=== PATIENT | male | born 1960 | race Caucasian/White ===

== ENCOUNTER → 2018-09-08 | Outpatient (CLI) | payer OTHER ==
--- NOTE | 2018-09-08 13:49 | XR ---
EXAMINATION TYPE: XR thoracic spine complete DATE OF EXAM: 09/08/2018 CLINICAL HISTORY: Strain injury one week ago with mid back pain. TECHNIQUE: Frontal, lateral, and swimmer's view of thoracic spine are obtained. COMPARISON: MRI thoracic spine 2010. FINDINGS: Thoracic spine show straightened alignment without evidence of acute fracture or dislocatio n. Vertebral body heights and disc space heights are preserved. Visualized ribs are unremarkable alissa aterally. IMPRESSION: No acute fracture or dislocation is seen in the thoracic spine.
== END | disposition home or self-care (01) ==
LOC: RADXRMAIN 13:27
PROVIDERS: ATTEND Emergency Medicine
DX: S23.3XXA Sprain of ligaments of thoracic spine, initial encounter (principal)
CPT/HCPCS: 72072

== ENCOUNTER → 2018-12-13 | Outpatient (CLI) | payer OTHER ==
--- NOTE | 2018-12-13 15:09 | XR ---
Left ankle HISTORY: Trauma and pain 3 views of the left ankle There is minimal soft tissue swelling. Bone mineralization, joint spaces and alignment are maintained . IMPRESSION: No fracture or dislocation is evident.
== END | disposition home or self-care (01) ==
LOC: RADXRMAIN 11:09
PROVIDERS: ATTEND Family Medicine
DX: M25.572 Pain in left ankle and joints of left foot (principal)

== ENCOUNTER → 2019-11-10 | Outpatient (CLI) | payer OTHER ==
[2019-11-10 15:36] LABS: ALT 35 U/L (4-49); AST 38 U/L (17-59); African American GFR (CKD) >90 (>60 ml/min/1.73 sqM); Albumin 4.2 g/dL (3.5-5.0); Alkaline Phosphatase 71 U/L (38-126); Anion Gap 7 mmol/L; Blood Urea Nitrogen 19 mg/dL (9-20); Calcium 9.4 mg/dL (8.4-10.2); Carbon Dioxide 27 mmol/L (22-30); Chloride 106 mmol/L (98-107); Glucose 93 mg/dL (74-99); Non-African American GFR(CKD) >90 (>60 ml/min/1.73 sqM); Potassium 4.1 mmol/L (3.5-5.1); Sodium 140 mmol/L (137-145); Total Bilirubin 0.9 mg/dL (0.2-1.3); Total Protein 6.4 g/dL (6.3-8.2)
[2019-11-10 15:37] LABS: HCT 45.2 % (39.0-53.0); HGB 14.4 gm/dL (13.0-17.5); MCH 29.9 pg (25.0-35.0); MCHC 31.9 g/dL (31.0-37.0); MCV 93.8 fL (80.0-100.0); Mean Platelet Volume 7.1; Platelet Count 351 k/uL (150-450); RBC 4.82 m/uL (4.30-5.90); RDW 12.1 % (11.5-15.5); WBC 5.9 k/uL (3.8-10.6)
[2019-11-10 15:44] LABS: Amorphous Sediment,Urine Rare /hpf; Appearance,Urine Cloudy (Clear); Bilirubin,Urine Negative (Negative); Blood,Urine Negative (Negative); Color,Urine Yellow; Glucose,Urine (UA) Negative (Negative); Ketones,Urine Negative (Negative); Leukocyte Esterase,Urine Negative (Negative); Mucus,Urine Moderate /hpf; Nitrite,Urine Negative (Negative); PH, Urine 5.5 (5.0-8.0); Protein,Urine Trace (Negative); Specific Gravity,Urine 1.028 (1.001-1.035); Urobilinogen,Urine <2.0 mg/dL (<2.0); WBC,Urine 2 /hpf (0-5)
[2019-11-10 15:46] LABS: Partial Thromboplastin Time 23.2 sec (22.0-30.0); Prothrombin Time 10.1 sec (9.0-12.0)
== END | disposition home or self-care (01) ==
LOC: LABPAT 12:36
PROVIDERS: ATTEND Orthopaedic Surgery
DX: Z01.818 Encounter for other preprocedural examination (principal); Z01.812 Encounter for preprocedural laboratory examination
CPT/HCPCS: 36415; 80053; 81001; 85027; 85610; 85730; 87070

== ENCOUNTER 2019-11-27 10:24 | Day surgery (SDC) | payer OTHER ==
[2019-11-23 09:55] VITALS: BMI 26.6
[~2019-11-27 10:24] MED LIST: ACETAMINOPHEN TAB 500 MG TAB PO ONE; DEXAMETHASONE SOD PHOSPHATE 10 MG/ML 1 ML VIAL IV ONE; LACTATED RINGERS 1,000 ML IV SCH; LIDOCAINE 1% (10MG/ML) FOR IV START INTRADERMA PRN; MELOXICAM 7.5 MG TAB PO ONE; ONDANSETRON 4 MG/2 ML VIAL IVP ONE; ROPIVACAINE 246.25 MG, EPINEPHrine 0.5 MG, KETOROLAC 30 MG, cloNIDine HCL/PF 80 MCG, WA... MISCELLANE ONE; SCOPOLAMINE 1.5MG/72HR PATCH TRANSDERM ONE; TRANEXAMIC ACID 1,000 MG in SODIUM CHLORIDE 0.9% 100 ML IVPB ONE
[2019-11-27] MEDS ORDERED: ONDANSETRON 4 MG/2 ML VIAL ONE (11:03)
[2019-11-27] MEDS ORDERED: ACETAMINOPHEN TAB 500 MG TAB ONE (11:03)
[2019-11-27] MEDS ORDERED: MIDAZOLAM 2 MG/2 ML VIAL IV ONE (11:38)
[2019-11-27] MEDS ORDERED: fentaNYL (PF) 50 MCG/ML 2 ML AMP IV ONE ×2 (11:38→11:55)
[2019-11-27] MEDS ORDERED: ROPIVACAINE 0.2%-NS ON-Q PUMP 1,090 MG, EMPTY PAIN BALL 1 EACH MISCELLANE PRN ×3 (12:37→14:23)
--- NOTE | 2019-11-27 12:37 | P.ANPRN ---
Procedure Note - Anesthesia - Nerve Block Performed Right Adductor Canal Infusion Time Out Performed: Yes Date of Procedure: 11/27/19 Procedure Start Time: 11:38 Procedure Stop Time: 11:50 Location of Patient: PreOp Indication: Acute Post-Operative Pain, Requested by Surgeon Specifically requested for management of pain by : Richard Tucker Sedation Type: Sedate with meaningful contact maintained Preparation: Sterile Prep, Sterile Dressing Position: Supine Catheter: Indwelling Needle Types: Pajunk Needle Gauge: 18 Ultrasound used to visualize needle placement: Yes Ultrasound used to observe medication spread: Yes Injectate: 0.5% Ropivacaine (see comment for volume) (15 ml + decadron 2 mg) Blood Aspirated: No Pain Paresthesia on Injection Noted: No Resistance on Injection: Normal Image Stored and Saved: Yes Events: Uneventful and Well Tolerated Left Adductor Canal Infusion Time Out Performed: Yes Date of Procedure: 11/27/19 Procedure Start Time: 11:51 Procedure Stop Time: 12:07 Location of Patient: PreOp Indication: Acute Post-Operative Pain, Requested by Surgeon Sedation Type: Sedate with meaningful contact maintained Preparation: Sterile Prep, Sterile Dressing Position: Supine Catheter: Indwelling Needle Types: Pajunk Needle Gauge: 18 Ultrasound used to visualize needle placement: Yes Ultrasound used to observe medication spread: Yes Injectate: 0.5% Ropivacaine (see comment for volume) (15 ml + 2 mg decadron) Blood Aspirated: No Pain Paresthesia on Injection Noted: No Resistance on Injection: Normal Image Stored and Saved: Yes Events: Uneventful and Well Tolerated
[2019-11-27] MEDS ORDERED: ePHEDrine SULFATE/0.9% NACL/PF 50 MG/5 ML SYRINGE IV ONE (12:46)
[2019-11-27] MEDS ORDERED: HYDROmorphone (PF) 1 MG/ML ONE (12:46)
[2019-11-27] MEDS ORDERED: TRANEXAMIC ACID 1,000 MG/10 ML VIAL ONE (12:46)
[2019-11-27] MEDS ORDERED: fentaNYL (PF) 50 MCG/ML 2 ML AMP ONE (12:46)
[2019-11-27] MEDS ORDERED: SODIUM CHLORIDE 0.9% 250 ML BAG ONE (12:46)
[2019-11-27] MEDS ORDERED: LIDOCAINE 1% INJ 10MG/ML (20 ML MDV) ONE (12:46)
[2019-11-27] MEDS ORDERED: SUCCINYLCHOLINE CHLORIDE 100 MG/5 ML SYR IV ONE (12:46)
[2019-11-27] MEDS ORDERED: PROPOFOL 10 MG/ML 20 ML VIAL IV ONE (12:46)
[2019-11-27] MEDS ORDERED: MIDAZOLAM 2 MG/2 ML VIAL ONE (12:46)
[2019-11-27] MEDS ORDERED: LACTATED RINGERS 1,000 ML IV ONE ×2 (15:30→16:36)
--- NOTE | 2019-11-27 16:27 | P.OP ---
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 ANESTHESIA: Spinal ESTIMATED BLOOD LOSS: 100 ml. METAL STAMPER: Isabell Pereyra PA-C (assistance with: patient positioning, retraction, exposure, hemostasis, leg positioning, implantation, irrigation, closure, dressing) COMPLICATIONS: None apparent. COMPONENTS IMPLANTED: Journey II BCS total knee system from [facility], [facility] INDICATIONS: Mr. Chaudhari is a 59 year old male with a history of bilateral knee osteoarthritis. The patient's knees are end-stage, and conservative management has failed. The operation of knee replacement bilaterally has been discussed at length in the office, as well as potential risks and complications. These are inclusive of, but not limited to: bleeding, infection, scarring, discomfort, blood vessel and nerve damage, need for further surgery, failure to relieve symptoms, persistence, recurrence, or worsening of problems, loosening, dislocation, wear, blood clot, pulmonary embolism, , gait dysfunction, stiffness, and other risks as discussed in the office. He understands the incre ased risks of morbidity and mortality with a bilateral knee approach. The patient elects to proceed and the consent form has been signed. PROCEDURE: The patient was taken to the operating room and positioned on the operating room table in the supine position. Anesthesia was initiated. Care was taken to make sure that all pressure points were adequately padded. The operative lower extremities were prepped and draped in the usual aseptic fashion using ChloraPrep. Ioban drape was used for the case and the patient received intravenous antibiotics within one hour of the incision. A pneumotourniquet and leg arenas were used for the case. The initial limb (right) was exsanguinated with an Esmarch bandage and the tourniquet was inflated to 350 mmHg. Time-out was called confirming the patient's identity, side (bilateral), procedure and administration of antibiotics and tranexamic acid. The incision was then created midline directly over the left knee, carried down through skin and into the subcutaneous tissues and down to fascia. Full thickness subcutaneous medial flap was developed. Medial parapatellar arthrotomy was performed and the interior of the knee was inspected. There was end-stage osteoarthritis of the knee with a mild to moderate genu valgum type deformity. The fat pad was excised and proximal medial release on the tibia was completed using meticulous dissection and a curved osteotome. The anterior cruciate ligament was taken down. Note was made of significant attrition of the anterior and significant degenerative appearance of the cruciate ligaments. The exposure was excellent. The knee was flexed 90 degrees and the patella was everted. The Visionaire pre- made distal cutting block was attached and pinned into position. The planned cut was analyzed visually and with the alignment iain and found to be satisfactory without the need for any adjustment. The oscillating saw was then used to make the distal femoral cut and make the alignment holes for the 5 in 1 block. This cut was confirmed to be flat with the flat end of an osteotome. The 5 in 1 block was then used to create the anterior posterior condylar resections and the chamfer cuts. The retractors were placed around the tibia and the tibial surface was addressed. The Visionaire pre-made guide was placed onto the exposed tibial surface and pinned into position to gamal the rotational alignment. The alignment of the guide was checked for depth of plannned resection, slope, and varus valgus. Guide was confirmed to be in good position and the tibial cut was then created with protection of the posterior neurovascular structures and the collateral ligaments. The tibial cut surface was removed and sized. Spacer block technique was then used to confirm that the flexion and extension gaps were equal. Soft tissue releases and adjustment of the tibial and/or femoral cuts were made, as necessary, until the gaps were equal. This included release of the posterior cruciate ligament, which was excessively tight in this patient. The trial components were inserted. The tibial tray was allowed to self center and the patella was noted to track very well. The position of the tibial component was marked and noted to be nearly exactly aligned with the pre-drilled holes from the [employer]aire guide. The tibia was then finished for a stemmed tibial component. Patellar resurfacing was performed using a reamer. The size of the required patellar component was estimated and the patellar surface was then reamed down to a residual thickness which would recreate the egegik thickness with the component. The exact placement of the patellar component was adjusted for position based on preoperative x-rays and intraoperative findings. Patellar tracking remained excellent after resurfacing. Trial components were removed and the cut surfaces of the bone were pulse lavaged thoroughly and dried. Cement was mixed on the back table and applied to the final components. Cement was then applied to the tibial surface and pressurized into the surface using finger pressurization technique. The tibial component was then applied and excess cement was removed after it was impacted securely and noted to be flush with the cut surface. In similar fashion, the cement was applied to the cut femoral surface, pressurized in using finger pressurization and the component was impacted into place. Excess cement was removed. The polyethylene spacer was then implanted and locked into position. The patellar component was then applied in similar technique and a patellar clamp was used to hold the patella in place as the cement hardened. Once the cement had fully hardened, the knee was reinspected. Any other cement extrusion was removed and final kinematic testing showed range of motion from 0 to 130 degrees with excellent stability, both medially and laterally and appropriate alignment of the leg. Patellar tracking was excellent. The knee was then thoroughly pulse lavaged with normal saline. The tourniquet was deflated and hemostasis was obtained with electrocautery and IV tranexamic acid, 1 g given at the start of the operation and 1 g at the start of closure. Closure was with #2 Ethibond in the fascia/capsule and supplemented with #2 Quill, 2-0 Vicryl suture was used for the subcutaneous tissues and 3-0 Quill for the skin. Exofin topical dressing was then applied. The right leg was then uncovered by snipping the covering sterile drape and discarding. The above steps for the right knee were followed in similar fashion with the outcome being a fully cemented bicruciate substituting reconstruction with excellent patellar tracking and 0-130 degrees motion. No complications were noted during the surgery on either knee. Estimated blood loss was 50 cc per knee, total of 100 cc for the entire procedure. A lightly compressive dressing was applied to both knees using Webril and an Pj wrap. The patient was then transferred to stretcher and taken to the recovery room in stable condition. Sponge and needle counts were correct.
[2019-11-27] MEDS ORDERED: HYDROmorphone 1 MG/ML 1 ML SYRINGE IVP PRN (16:55)
[2019-11-27] MEDS ORDERED: HYDROmorphone 0.5 MG/0.5 ML SYRINGE IVP PRN ×2 (16:55)
[2019-11-27] MEDS ORDERED: bisacodyL 10 MG SUPP RECTAL PRN (16:55)
[2019-11-27] MEDS ORDERED: TEMAZEPAM 15 MG CAP PO PRN (16:55)
[2019-11-27] MEDS ORDERED: hydrOXYzine pamoate 25 MG CAP PO PRN (16:55)
[2019-11-27] MEDS ORDERED: HYDROcodone/APAP 7.5-325MG 1 EACH TAB PO PRN (16:55)
[2019-11-27] MEDS ORDERED: NA PHOS,M-B/NA PHOS,DI-BA 133 ML ENEMA RECTAL PRN (16:55)
[2019-11-27] MEDS ORDERED: NALOXONE 0.4 MG/ML 1 ML VIAL IV PRN (16:55)
[2019-11-27] MEDS ORDERED: MAGNESIUM HYDROXIDE 2,400 MG/10 ML CUP PO PRN (16:55)
[2019-11-27] MEDS: HYDROmorphone 0.5 MG/0.5 ML SYRINGE IVP PRN ×4 (16:55→17:32)
[2019-11-27] MEDS ORDERED: ONDANSETRON 4 MG/2 ML VIAL IVP PRN (16:55)
[2019-11-27] MEDS ORDERED: KETOROLAC 30 MG/ML 1 ML VIAL IVP ONE (17:04)
--- NOTE | 2019-11-27 17:47 | XR ---
EXAMINATION TYPE: XR knee limited bilateral DATE OF EXAM: 11/27/2019 COMPARISON: NONE HISTORY: Postop surgery TECHNIQUE: 4 views FINDINGS: 2 views of each knee were obtained. There is bilateral total knee prosthesis. Components ar e in anatomic position. There is no evidence of a fracture. IMPRESSION: No complicating process seen.
[2019-11-27] MEDS: LACTATED RINGERS 1,000 ML IV SCH (19:32)
[2019-11-27] MEDS ORDERED: SENNOSIDES-DOCUSATE SODIUM 1 EACH TAB PO SCH (21:00)
[2019-11-27] MEDS: ASPIRIN 81 MG PO SCH (21:33)
[2019-11-28 02:20] VITALS: TEMP 98.5
[2019-11-28] MEDS: LACTATED RINGERS 1,000 ML IV SCH (05:35)
[2019-11-28] MEDS: HYDROcodone/APAP 7.5-325MG 1 EACH TAB PO PRN ×2 (06:50→11:53)
[2019-11-28] MEDS: ASPIRIN 81 MG PO SCH (06:50)
[2019-11-28 07:37] VITALS: BP 139/81; PULSE 83; RESP 16
--- NOTE | 2019-11-28 08:16 | P.PN ---
Progress Note - Text Progress Note Date: 11/28/19 Postoperative day # 1 status post bilateral total knee arthroplasty, and Bilateral adductor canal catheter placed for postoperative analgesia, currently at ropivacaine 0.2% 8 mL per hour and continuous infusion, visual analogue scale is 3/10, patient using oral pain medication for breakthrough pain. Assessment and plan= Acute postoperative pain, Bilateral adductor canal catheter for pain control, pain is well controlled we'll continue the same management.
[2019-11-28 08:18] LABS: Basophils % (A) 0 %; Eosinophils % (A) 0 %; HCT 35.7 % (39.0-53.0); HGB 11.5 gm/dL (13.0-17.5); Lymphocytes # (A) 1.2 k/uL (1.0-4.8); Lymphocytes % (A) 8 %; MCH 30.1 pg (25.0-35.0); MCHC 32.2 g/dL (31.0-37.0); MCV 93.5 fL (80.0-100.0); Mean Platelet Volume 7.3; Monocytes # (A) 0.9 k/uL (0-1.0); Monocytes % (A) 6 %; Neutrophils # (A) 12.6 k/uL (1.3-7.7); Neutrophils % (A) 86 %; Platelet Count 298 k/uL (150-450); RBC 3.82 m/uL (4.30-5.90); RDW 11.7 % (11.5-15.5); WBC 14.8 k/uL (3.8-10.6)
[2019-11-28] MEDS ORDERED: MELOXICAM 7.5 MG TAB PO SCH (09:00)
--- NOTE | 2019-11-28 09:43 | P.DS ---
Providers Expected date of discharge: 11/28/19 Attending physician: Richard Tucker Consults: 11/27/19 16:55 Consult Physician Routine Consulting Provider: Timothy Ribeiro Reason/Comments: Medical management Do you want consulting provider notified?: Yes Primary care physician: Kieran Weston - Discharge Diagnosis(es) (1) Osteoarthritis of knees, bilateral Current Visit: Yes Status: Acute (2) S/P total knee arthroplasty Current Visit: Yes Status: Acute Hospital Course: This is a 59-year-old male who was last seen with complaint of continued bilateral knee pain. The patient has a known history of degenerative arthritis of bilateral knees and presents to discuss surgical options. After discussion and consideration the patient elects to proceed with bilateral total knee arthroplasty. The patient is seen preoperatively by his primary care physician and cleared for surgery. The patient is admitted to [facility] for bilateral total knee arthroplasty. The procedures performed without complication or sequelae. Patient is doing well postoperatively. Vital signs are stable at discharge. Labs are stable at discharge. the patient is ambulating well with walker with minimal assistance. The patient is discharged to home on postop day #1 pending medical clearance and PT eval. Please see orders and refer to the med rec for accurate list of medications. Patient Condition at Discharge: Good Plan - Discharge Summary Discharge Rx Participant: Yes New Discharge Prescriptions: New Aspirin [Adult Low Dose Aspirin EC] 81 mg PO BID #1 tablet. Meloxicam [Mobic] 1 - 2 tab PO DAILY PRN #30 tab PRN Reason: Pain HYDROcodone/APAP 7.5-325MG [[place] 7.5-325] 1 - 2 tab PO Q4-6H PRN #50 tab PRN Reason: Pain Sennosides-Docusate Sodium [Senokot-S] 1 tab PO BID #60 tablet hydrOXYzine pamoate [Vistaril] 25 mg PO Q4-6H #30 capsule No Action traMADol HCL [Ultram] 50 mg PO Q6HR PRN PRN Reason: Pain Discharge Medication List traMADol HCL [Ultram] 50 mg PO Q6HR PRN 11/23/19 [History] Aspirin [Adult Low Dose Aspirin EC] 81 mg PO BID #1 tablet. 11/27/19 [Rx] HYDROcodone/APAP 7.5-325MG [[place] 7.5-325] 1 - 2 tab PO Q4-6H PRN #50 tab 11/27/19 [Rx] Meloxicam [Mobic] 1 - 2 tab PO DAILY PRN #30 tab 11/27/19 [Rx] Sennosides-Docusate Sodium [Senokot-S] 1 tab PO BID #60 tablet 11/27/19 [Rx] hydrOXYzine pamoate [Vistaril] 25 mg PO Q4-6H #30 capsule 11/27/19 [Rx] Follow up Appointment(s)/Referral(s): Isabell Pereyra, ZOIE [PHYSICIAN STAKE SETTER] - 2 Weeks Activity/Diet/Wound Care/Special Instructions: May bear wt as tolerated w walker. May shower. Discharge Disposition: HOME WITH HOME HEALTH SERVICES
--- NOTE | 2019-11-28 10:54 | P.CONS ---
History of Present Illness - Reason for Consult Consult date: 11/28/19 Medical management - History of Present Illness This is a 59-year-old male patient of Dr. Weston with no sign ificant medical history except for osteoarthritis bilateral knees. The patient states that he sees Dr. Weston about one time per year. He is not currently on any home medications. Patient was brought in the hospital under the care of Dr. Tucker and is postop day #1 for bilateral total knee arthroplasty. He does have bilateral adductor canal catheter in place for pain control. He is schedul ed to work with physical therapy this morning. He also states that he is planning to return home today. Patient has had no postop complications. Vital signs been stable with a blood pressure 139/81, heart rate 83, pulse ox 97% on room air and afebrile. WBC is 14.8, hemoglobin 11.5. Review of Systems Constitutional: Denies anorexia, Denies chills, Denies fatigue, Denies fever, Denies malaise, Denies poor appetite, Denies weakness Eyes: denies blurred vision, denies pain Ears, nose, mouth and throat: Denies dental pain, Denies headache, Denies mouth pain, Denies nasal congestion, Denies nasal discharge, Denies sore throat, Denies vertigo Cardiovascular: Denies chest pain, Denies decreased exercise tolerance, Denies dyspnea on exertion, Denies edema, Denies leg edema, Denies lightheadedness, Denies orthopnea, Denies palpitations, Denies shortness of breath, Denies syncope Respiratory: Denies cough, Denies cough with sputum, Denies dyspnea, Denies excessive sputum, Denies hemoptysis, Denies home oxygen, Denies respiratory infections, Denies sleep apnea, Denies wheezing Gastrointestinal: Denies abdominal pain, Denies BRBPR, Denies diarrhea, Denies loss of appetite, Denies melena, Denies nausea, Denies vomiting Genitourinary: Denies dysuria, Denies urinary frequency, Denies urinary retention Musculoskeletal: Denies frequent falls, Denies gait dysfunction, Denies muscle weakness, Denies myalgias Integumentary: Reports wounds, Denies pruritus, Denies rash Neurological: Denies change in mentation, Denies change in speech, Denies confusion, Denies gait dysfunction, Denies head injury, Denies headaches, Denies numbness, Denies seizures, Denies weakness Psychiatric: Denies anxiety, Denies depression Endocrine: Denies fatigue, Denies weight change Past Medical History Past Medical History: Osteoarthritis (OA) History of Any Multi-Drug Resistant Organisms: None Reported Past Surgical History: Orthopedic Surgery Additional Past Surgical History / Comment(s): rt knee arthroscopy x3, left thumb, rt shoulder rotator cuff Past Anesthesia/Blood Transfusion Reactions: Previous Problems w/ Anesthesia Additional Past Anesthesia/Blood Transfusion Reaction / Comm: first knee scope, woke up with migraine and "split vision" Past Psychological History: No Psychological Hx Reported Smoking Status: Never smoker Past Alcohol Use History: None Reported Additional Past Alcohol Use History / Comment(s): Patient is a lifelong nonsmoker, no alcohol use, no marijuana or illicit drug use. Patient lives at home with his . Patient works as maintenance at [employer]. Past Drug Use History: None Reported - Past Family History Father Family Medical History: Cancer Additional Family Medical History / Comment(s): Father at age 62 from lung cancer with history of smoking, coronary artery disease. Mother Family Medical History: Cancer Additional Family Medical History / Comment(s): Mother is alive at age 80 with no major medical problems except for skin cancer. Brother(s) Additional Family Medical History / Comment(s): Patient is a total of 4 brothers and sisters with no major medical problems. Patient is 3 children with no major medical problems. Medications and Allergies Home Medications Medication Instructions Recorded Confirmed Type traMADol HCL [Ultram] 50 mg PO Q6HR PRN 11/23/19 11/23/19 History Aspirin [Adult Low Dose Aspirin EC] 81 mg PO BID #1 tablet. 11/27/19 Rx HYDROcodone/APAP 7.5-325MG [[place] 1 - 2 tab PO Q4-6H PRN #50 tab 11/27/19 Rx 7.5-325] Meloxicam [Mobic] 1 - 2 tab PO DAILY PRN #30 tab 11/27/19 Rx Sennosides-Docusate Sodium 1 tab PO BID #60 tablet 11/27/19 Rx [Senokot-S] hydrOXYzine pamoate [Vistaril] 25 mg PO Q4-6H #30 capsule 11/27/19 Rx Allergies Allergy/AdvReac Type Severity Reaction Status Date / Time No Known Allergies Allergy Verified 11/27/19 10:53 Physical Exam Vitals: Vital Signs Temp Pulse Resp BP Pulse Ox 11/28/19 07:00 98.5 F 83 16 139/81 97 11/28/19 06:45 16 11/28/19 01:47 98.5 F 89 18 146/46 96 11/27/19 23:34 18 11/27/19 20:00 79 18 11/27/19 19:00 79 18 157/94 97 11/27/19 18:59 90 18 158/95 96 11/27/19 18:58 90 18 159/98 96 11/27/19 18:57 88 18 162/95 96 11/27/19 18:56 86 18 161/93 96 11/27/19 18:55 98.0 F 82 18 158/97 96 11/27/19 18:30 94 16 168/95 94 L 11/27/19 18:18 88 16 162/97 94 L 11/27/19 18:04 91 16 163/95 96 11/27/19 17:45 94 16 157/94 95 11/27/19 17:39 161/93 11/27/19 17:33 97 16 150/101 95 11/27/19 17:15 94 16 163/98 95 11/27/19 17:00 96 16 157/101 94 L 11/27/19 16:49 97.7 F 101 H 16 144/95 94 L 11/27/19 12:15 62 16 143/85 96 11/27/19 10:57 98.6 F 74 16 148/93 95 Intake and Output 11/27/19 11/28/19 11/28/19 22:59 06:59 14:59 Intake Total 1400 Output Total 700 Balance 700 Intake: IV 1400 Output: Urine 600 Estimated Blood Loss 100 Other: Voiding Method Urinal Urinal # Voids 1 Weight 80.2 kg Physical Examination Gen: This is a 59-year-old male. He is resting in bed and appears to be comfortable and in no acute distress. HEENT: Head is atraumatic, normocephalic. Pupils equal, round. Sclerae is anicteric. NECK: Supple. No JVD. No lymphadenopathy. No thyromegaly. LUNGS: Clear to auscultation. No wheezes or rhonchi. No intercostal retractions. HEART: Regular rate and rhythm. No murmur. ABDOMEN: Soft. Bowel sounds are present. No masses. No tenderness. EXTREMITIES: No pedal edema. No calf tenderness. Dressings in place to the bilateral knees. NEUROLOGICAL: Patient is awake, alert and oriented x3. Cranial nerves 2 through 12 are grossly intact. Results CBC & Chem 7: 11/28/19 07:45 Labs: Abnormal Lab Results - Last 24 Hours (Table) 11/28/19 Range/Units 07:45 WBC 14.8 H (3.8-10.6) k/uL RBC 3.82 L (4.30-5.90) m/uL Hgb 11.5 L (13.0-17.5) gm/dL Hct 35.7 L (39.0-53.0) % Neutrophils # 12.6 H (1.3-7.7) k/uL Assessment and Plan Plan: 1. Osteoarthritis status post bilateral total knee arthroplasty. Continue current pain management, PT and OT to evaluate, and some spirometry to reduce incidence of atelectasis and hospital-acquired pneumonia, aspirin for DVT prophylaxis. 2. History of right shoulder rotator cuff repair. 3. Pain control. Continue tramadol, Mobic, [place]. 4. DVT prophylaxis. Aspirin 81 mg twice daily. Discharge plan: Home with [facility]. Impression and plan of care have been directed as dictated by the signing physician. Joya Giraldo nurse practitioner acting as scribe for signing physician.
== END 2019-11-28 14:34 | disposition home health service (06) ==
LOC: OR 10:24 → 4SSUR 18:28 → OR 11-28 14:34
PROVIDERS: ATTEND Orthopaedic Surgery
DX: M17.0 Bilateral primary osteoarthritis of knee (principal); M21.162 Varus deformity, not elsewhere classified, left knee; M21.161 Varus deformity, not elsewhere classified, right knee; Z98.890 Other specified postprocedural states; I10 Essential (primary) hypertension; Z82.49 Family history of ischemic heart disease and other diseases of the circulatory system; Z80.1 Family history of malignant neoplasm of trachea, bronchus and lung; Z80.8 Family history of malignant neoplasm of other organs or systems; Z79.1 Long term (current) use of non-steroidal anti-inflammatories (NSAID); Z79.82 Long term (current) use of aspirin; Z79.891 Long term (current) use of opiate analgesic; Z79.899 Other long term (current) drug therapy
CPT/HCPCS: 27447; 97116; 97110; 97161; 97535; 97165; 64448; 76942; 85025; 88300; 73560; C1713; C1776; J2250; J0171; J1100; J0690 ×2; J2405; J2001; J3010; J1885; J1170 ×2; J2795 ×2; J0330; J2704; J0735

== ENCOUNTER → 2021-10-15 | Outpatient (CLI) | payer OTHER ==
--- NOTE | 2021-10-15 15:23 | XR ---
Right shoulder HISTORY: M 24.811, right shoulder internal derangement 3 views of the right shoulder No comparisons There is osteoarthritic change at the acromioclavicular joint. There may be a distal acromial spur pr esent. There is no fracture or dislocation. Remodeling is present with joint space loss at the glenoh umeral joint, marginal spurring. Alignment is maintained. Bone mineralization may be somewhat reduced . Right lung apex as visualized is normal. IMPRESSION: Osteoarthritis
== END | disposition home or self-care (01) ==
LOC: RADXRMAIN 13:56
PROVIDERS: ATTEND Family Medicine
DX: M24.811 Other specific joint derangements of right shoulder, not elsewhere classified (principal)

== ENCOUNTER → 2022-01-26 | Outpatient (CLI) | payer OTHER | END | disposition home or self-care (01) | LOC: LABWHC1 10:04 | PROVIDERS: ATTEND Orthopaedic Surgery | DX: Z53.9 Procedure and treatment not carried out, unspecified reason (principal) ==

== ENCOUNTER 2022-02-05 05:48 | Day surgery (SDC) | payer OTHER ==
[2022-01-26 11:03] LABS: Basophils % (A) 1 %; Eosinophils # (A) 0.1 k/uL (0-0.7); Eosinophils % (A) 3 %; HCT 41.7 % (39.0-53.0); HGB 13.5 gm/dL (13.0-17.5); Lymphocytes # (A) 1.4 k/uL (1.0-4.8); Lymphocytes % (A) 26 %; MCH 30.7 pg (25.0-35.0); MCHC 32.5 g/dL (31.0-37.0); MCV 94.5 fL (80.0-100.0); Mean Platelet Volume 7.4; Monocytes # (A) 0.5 k/uL (0-1.0); Monocytes % (A) 10 %; Neutrophils # (A) 3.2 k/uL (1.3-7.7); Neutrophils % (A) 59 %; Platelet Count 300 k/uL (150-450); RBC 4.41 m/uL (4.30-5.90); RDW 11.7 % (11.5-15.5); WBC 5.4 k/uL (3.8-10.6)
[2022-01-26 11:24] LABS: Potassium 4.5 mmol/L (3.5-5.1)
[2022-02-03 16:55] VITALS: BMI 27.3
--- NOTE | 2022-02-05 04:58 | HP ---
HISTORY AND PHYSICAL DATE OF SURGERY: Surgery is scheduled for 02/05/2022. HISTORY OF PRESENT ILLNESS: Bryn Chaudhari is a 61-year-old gentleman, seen with progressive right shoulder pain. We discussed options for treatment. He elected to proceed with right shoulder arthroscopy. Consent regarding the procedure was obtained. PAST MEDICAL HISTORY: Hypertension, hyperlipidemia. PAST SURGICAL HISTORY: Right total knee arthroplasty, right shoulder arthroscopy, left thumb surgery. DAILY MEDICATIONS: 1. Amlodipine. 2. Hydrocodone. 3. Losartan. 4. Rosuvastatin. ALLERGIES: None. SOCIAL HISTORY: Denies current tobacco use. PHYSICAL EVALUATION OF THE RIGHT SHOULDER: Flexion is 80 degrees, abduction 60 degrees, external rotation is 50 degrees with pain and weakness. Tenderness along the anterolateral acromion and rotator cuff insertion. Impingement is positive at 90 degrees. Drop-arm sign is positive. Distal neurovascular exam is intact. RADIOGRAPHS: Radiographs of the right shoulder revealed a type 2 acromion, acromioclavicular joint osteoarthritis and cystic changes of the tuberosity. MRI of the right shoulder revealed a partial rotator cuff tear, glenohumeral and acromioclavicular joint osteoarthritic changes. IMPRESSION: 1. Right shoulder impingement with partial rotator cuff tear. 2. Right shoulder acromioclavicular joint osteoarthritis. 3. Right shoulder glenohumeral joint osteoarthritis. 4. Hypertension. 5. Hyperlipidemia. PLAN: Right shoulder arthroscopy with subacromial decompression, Maria Alejandra procedure, possible rotator cuff repair and debridement. MMODL / IJN: [id number] /
[2022-02-05] MEDS ORDERED: HYDROmorphone 0.5 MG/0.5 ML SYRINGE IVP PRN (06:10)
[2022-02-05] MEDS ORDERED: DEXAMETHASONE SOD PHOSPHATE 4 MG/ML 1 ML VIAL IV ONE (06:10)
[2022-02-05] MEDS ORDERED: ONDANSETRON 4 MG/2 ML VIAL IVP ONE (06:10)
[2022-02-05] MEDS: LACTATED RINGERS 1,000 ML IV SCH ×2 (06:56→07:28)
[2022-02-05] MEDS ORDERED: MIDAZOLAM 2 MG/2 ML VIAL IVP ONE (07:10)
[2022-02-05] MEDS ORDERED: fentaNYL (PF) 50 MCG/ML 2 ML AMP IVP ONE (07:10)
[2022-02-05] MEDS ORDERED: LIDOCAINE 2% INJ 20 MG/ML (2 ML VIAL) ONE ×2 (07:24)
[2022-02-05] MEDS ORDERED: GLYCOPYRROLATE 0.2 MG/ML 2 ML VIAL ONE (07:24)
[2022-02-05] MEDS ORDERED: NEOSTIGMINE 1 MG/ML 10 ML VIAL ONE (07:24)
[2022-02-05] MEDS ORDERED: ROPIVACAINE 5 MG/ML 30 ML VIAL ONE (07:24)
[2022-02-05] MEDS ORDERED: PROPOFOL 10 MG/ML 20 ML VIAL IV ONE (07:24)
[2022-02-05] MEDS ORDERED: SUCCINYLCHOLINE CHLORIDE 200 MG/10 ML VIAL IV ONE (07:24)
[2022-02-05] MEDS ORDERED: DEXAMETHASONE SOD PHOSPHATE 4 MG/ML 1 ML VIAL ONE (07:24)
[2022-02-05] MEDS ORDERED: ROCURONIUM 10 MG/ML (5 ML VIAL) IV ONE (07:24)
[2022-02-05] MEDS ORDERED: PHENYLEPHRINE-0.9% NACL SYG 1,000 MCG/10 ML SYRINGE ONE (07:24)
[2022-02-05 08:59] VITALS: TEMP 97
--- NOTE | 2022-02-05 09:08 | P.OP ---
Date of Procedure: 02/05/22 Preoperative Diagnosis: Right shoulder impingement Postoperative Diagnosis: 1. Right shoulder rotator cuff tear 2. Right shoulder impingement 3. Right shoulder acromioclavicular joint osteoarthritis 4. Right shoulder partial long head biceps tendon tear 5. Right shoulder superficial labral tear 6. 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 Right shoulder arthroscopic rotator cuff repair 2. Right shoulder arthroscopic subacromial decompression 3. Right shoulder arthroscopic Maria Alejandra procedure 4. Right shoulder arthroscopic biceps tenotomy 5. Right shoulder arthroscopic debridement labral tear Implants: 14.75 Arthrex swivel lock anchor Anesthesia: GETA, regional (Interscalene block) Surgeon: Anthony Gaines Manager Of [employer] #1: Bertrand Zamora Estimated Blood Loss (ml): 10 Pathology: none sent Condition: stable Disposition: PACU Indications for Procedure: 61-year-old patient seen with progressive right shoulder pain. After treatment options were discussed, he elected to proceed with arthroscopy. Operative Findings: see description of procedure Description of Procedure: Patient underwent an interscalene block by department of anesthesia. The patient was then taken to the operative suite. The patient underwent a general anesthetic by the department of anesthesia. The patient was placed into a lateral position and secured. There was appropriate padding of the bony prominence. Right shoulder was then prepped and draped in normal sterile orthopedic fashion. We placed the extremity in 10 pounds of longitudinal traction. A posterior incision was now made for a posterior working portal site. The trocar and cannula were inserted into the glenohumeral joint. Arthroscopy was initiated. Spinal needle was now inserted anteriorly, to ascertain the anterior working portal site. An incision was now made in that area, a trocar was inserted followed by a probe. There were grade 4 chondromalacia changes of both the humeral head and glenoid fossa. There was some superficial fraying and tearing of the superior labrum. There was some partial tearing long head biceps tendon. I performed a arthroscopic biceps tenotomy. I debrided the superficial labral tear. The remaining labrum was probed and was found to be stable. Instruments were now removed from the glenohumeral joint. Utilizing the posterior working portal site, the trocar and cannula were inserted into the subacromial space. Arthroscopy initiated. I made an incision 2 fingerbreadths lateral to the acromion. I introduced my trocar followed by my ArthroCare ablator. I now began ablating thick subacromial bursal tissue, which exposed the undersurface of the anterior acromion. There was diminished subacromial space. There was a very prominent anterior acromion. A motorized bur was introduced and a subacromial decompression was performed. I also excised some osteophytes off the inferior aspect of the distal clavicle. The AC joint was visualized and noted to be fairly arthritic. The motorized bur was introduced in the anterior portal site and a Maria Alejandra procedure was performed without difficulty, decompressing the AC joint nicely. I turned my attention to the rotator cuff. There was a full-thickness perforation/rotator cuff tendon tear along the distal supraspinatus. The measuring approximately 1 cm. I debrided the margins getting down to stable tendon tissue. The defect was now about 1.5 cm and was freely mobile over the footprint. I abraded the footprint with a motorized bur. With the assistance of Tyler AUSTIN I passed 3 everted mattress sutures through good bites of rotator cuff tendon. I now punched: The footprint area for insertion of an anchor. All 6 limbs of suture were passed through the eyelet of a 4.75 Arthrex swivel lock anchor. I placed the eyelet into the pre-punched hole. I held in position while Tyler AUSTIN tensioned all 6 limbs of suture and deployed the anchor with good fixation noted. All residual suture limbs were now clipped. We had good compression of the tendon along the entire footprint. Instruments now removed from the portal sites. All portal sites were approximated with nylon suture. Sterile dressings were applied followed by a shoulder sling. Bertrand AUSTIN assisted in this complex case. The patient was awakened, transferred to a bed, and taken to recovery in stable condition.
[2022-02-05] MEDS ORDERED: LACTATED RINGERS 1,000 ML IV ONE (09:58)
[2022-02-05 10:36] VITALS: RESP 20
[2022-02-05 11:03] VITALS: BP 130/80; PULSE 65
--- NOTE | 2022-02-05 11:39 | P.ANPRN ---
Procedure Note - Anesthesia - Nerve Block Performed Right Interscalene Single Time Out Performed: Yes ([id number]) Date of Procedure: 02/05/22 Procedure Start Time: :09 Procedure Stop Time: 07:14 Location of Patient: PreOp Indication: Acute Post-Operative Pain, Dx/Pain Location (Right knee), Requested by Surgeon Specifically requested for management of pain by DrDanish: Vicente Cisse Sedation Type: Sedate with meaningful contact maintained Preparation: Sterile Prep Position: Supine Catheter: None Needle Types: Pajunk Needle Gauge: 21 Ultrasound used to visualize needle placement: Yes Ultrasound used to observe medication spread: Yes Injectate: 0.5% Ropivacaine (see comment for volume) (30 cc + decadron 4 mg) Blood Aspirated: No Pain Paresthesia on Injection Noted: No Resistance on Injection: Normal Image Stored and Saved: Yes Events: Uneventful and Well Tolerated
== END 2022-02-05 11:10 | disposition home or self-care (01) ==
LOC: OR 05:48
PROVIDERS: ATTEND Orthopaedic Surgery
DX: M75.111 Incomplete rotator cuff tear or rupture of right shoulder, not specified as traumatic (principal); G89.18 Other acute postprocedural pain; M75.41 Impingement syndrome of right shoulder; M19.011 Primary osteoarthritis, right shoulder; I10 Essential (primary) hypertension; E78.5 Hyperlipidemia, unspecified; Z98.890 Other specified postprocedural states
CPT/HCPCS: 64415; 76942; 80051; 85025; 93005; 29827; 29826; 29824; C1713; J2250; J0330; J1100; J2710; J0690; J2405; J3010; J2795; J2370; J2704; J2001

== ENCOUNTER 2023-07-04 13:09 | Emergency (ER) | payer MEDICARE, OTHER ==
--- NOTE | 2023-07-04 13:19 | ED ---
Extremity Problem HPI - General Source: patient, family, RN notes reviewed Mode of arrival: wheelchair Limitations: physical limitation <Evelyn Baptiste - Last Filed: 07/04/23 13:18> - General Source: patient, family, RN notes reviewed Limitations: no limitations <Angelito Zuniga - Last Filed: 07/04/23 15:51> - General Chief complaint: Extremity Problem,Nontraumatic Stated complaint: Ankle pain Time Seen by Provider: 07/04/23 13:18 - History of Present Illness Initial comments: Patient is a 63-year-old male presented to ER with chief complaint of left foot pain and discoloration. Patient states he woke up day morning with this. States it is very painful to walk. Denies any history of blood clots, calf tenderness, known injuries. (Evelyn Baptiste) Patient is a pleasant 63-year-old male presenting to the emergency department with left ankle discomfort. Onset of symptoms was yesterday morning. Patient states he woke up with symptoms. Patient does not recall any injury. Patient has noticed some mild swelling. Discomfort increases with movement and ambulating. No calf pain. No redness. No warmth. No fevers. No history of similar symptoms previously. No other area of involvement (Angelito Zuniga) - Related Data Home Medications Medication Instructions Recorded Confirmed HYDROcodone/APAP 10-325MG [Odin 1 tab PO DIRECTED PRN 02/03/22 02/05/22 10-325] Losartan Potassium 100 mg PO QAM 02/03/22 02/05/22 Rosuvastatin Calcium 10 mg PO HS 02/03/22 02/05/22 amLODIPine BESYLATE 10 mg PO QAM 02/03/22 02/05/22 Previous Rx's Medication Instructions Recorded HYDROcodone/APAP 10-325MG [Odin 1 tab PO Q6HR PRN 7 Days #28 tab 02/05/22 10-325] Naproxen [EC-Naproxen] 500 mg PO BID #20 tab 07/04/23 Allergies Allergy/AdvReac Type Severity Reaction Status Date / Time No Known Allergies Allergy Verified 02/05/22 06:27 Review of Systems ROS Other: All systems not noted in ROS Statement are negative. <Evelyn Baptiste - Last Filed: 07/04/23 13:18> ROS Other: All systems not noted in ROS Statement are negative. Constitutional: Denies: fever Eyes: Denies: eye pain ENT: Denies: ear pain Respiratory: Denies: cough Musculoskeletal: Reports: as per HPI, arthralgia Skin: Denies: rash <EfrainAngelito - Last Filed: 07/04/23 15:51> ROS Statement: Those systems with pertinent positive or pertinent negative responses have been documented in the HPI. Past Medical History Past Medical History: Osteoarthritis (OA) History of Any Multi-Drug Resistant Organisms: None Reported Past Surgical History: Orthopedic Surgery Additional Past Surgical History / Comment(s): rt knee arthroscopy x3, left thumb, rt shoulder rotator cuff Past Anesthesia/Blood Transfusion Reactions: Previous Problems w/ Anesthesia Additional Past Anesthesia/Blood Transfusion Reaction / Comment(s): first knee scope, woke up with migraine and "split vision" Past Psychological History: No Psychological Hx Reported Smoking Status: Never smoker Past Alcohol Use History: None Reported Past Drug Use History: None Reported - Past Family History Father Additional Family Medical History / Comment(s): Father at age 62 from lung cancer with history of smoking. Mother Family Medical History: Cancer Additional Family Medical History / Comment(s): Skin cancer. Brother(s) Additional Family Medical History / Comment(s): Patient is a total of 4 brothers and sisters with no major medical problems. Patient is 3 children with no major medical problems. <Evelyn Baptiste - Last Filed: 07/04/23 13:18> General Exam <Evelyn Baptiste - Last Filed: 07/04/23 13:18> Limitations: no limitations General appearance: alert, in no apparent distress Head exam: Present: normocephalic Eye exam: Present: normal appearance Respiratory exam: Present: normal lung sounds bilaterally Cardiovascular Exam: Present: regular rate, normal rhythm Expanded Peripheral pulses: 2+: Posterior Tibialis (L), Dorsalis Pedis (L) GI/Abdominal exam: Present: soft. Absent: tenderness Extremities exam: Present: tenderness (Left lateral ankle with moderate swelling and tenderness. Medial ankle with mild swelling and tenderness. No warmth. No erythema. There is minimal ecchymosis. Distally the extremity is neurovascular intact.), other (Achilles tendon is intact). Absent: calf tenderness Neurological exam: Present: alert. Absent: motor sensory deficit Psychiatric exam: Present: normal affect, normal mood Skin exam: Absent: erythema <Angelito Zuniga - Last Filed: 07/04/23 15:51> - General Exam Comments Initial Comments: Visual Physical Exam Vital signs reviewed General: Well-appearing, nontoxic, no acute distress. Head: Normocephalic, atraumatic Eyes: PERRLA, EOMI ENT: Airway patent Chest: Nonlabored breathing Skin: No visual rash, normal skin tone Neuro: Alert and oriented 3 Musculoskeletal: Discoloration to lateral left foot. (Evelyn Baptiste) Course Vital Signs 07/04/23 14:42 Temperature 98.3 F Pulse Rate 77 Respiratory 18 Rate Blood Pressure 125/83 O2 Sat by Pulse 98 Oximetry Medical Decision Making <Evelyn Baptiste - Last Filed: 07/04/23 13:18> <Angelito Zuniga - Last Filed: 07/04/23 15:51> - Medical Decision Making I performed the quick note portion of this chart. Electronically signed by Evelyn Baptiste PA-C (Evelyn Baptiste) Was pt. sent in by a medical professional or institution ([facility], CARDIAC CATH LAB RADIOLOGY TECHNOLOGIST, urgent care, hospital, or [place] health care facility...) When possible be specific @ -No Did you speak to anyone other than the patient for history (EMS, parent, family, police, friend...)? What history was obtained from this source @ - is present helps provide history including onset Did you review nursing and triage notes (agree or disagree)? Why? @ -I reviewed and agree with nursing and triage notes Were old charts reviewed (outside hosp., previous admission, EMS record, old EKG, old radiological studies, urgent care reports/EKG's, [place] health care facility records)? Report findings @ -No old charts were reviewed Differential Diagnosis (chest pain, altered mental status, abdominal pain women, abdominal pain men, vaginal bleeding, weakness, fever, dyspnea, syncope, headache, dizziness, GI bleed, back pain, seizure, CVA, palpatations, mental health, musculoskeletal)? @ -Differential Musculoskeletal Muscular strain, contusion, ligament sprain, fracture, arthritis, septic arthritis, bursitis, cellulitis, muscle spasm, nerve compression, DVT, arterial occlusion, herpes zoster, electrolyte abnormality, tumor.... This is not meant to be in all inclusive list EKG interpreted by me (3pts min.). @ -As above X-rays interpreted by me (1pt min.). @ -X-ray left foot and ankle show no acute process CT interpreted by me (1pt min.). @ -None done U/S interpreted by me (1pt. min.). @ -None done What testing was considered but not performed or refused? (CT, X-rays, U/S, labs)? Why? @ -None What meds were considered but not given or refused? Why? @ -None Did you discuss the management of the patient with other professionals (professionals i.e. , PA, CARDIAC CATH LAB RADIOLOGY TECHNOLOGIST, lab, RT, psych nurse, social work nurse, light rail operator, teacher, natural resource officer, dependency case manager)? Give summary @ -No Was smoking cessation discussed for >3mins.? @ -No Was critical care preformed (if so, how long)? @ -No Were there social determinants of health that impacted care today? How? (Homelessness, low income, unemployed, alcoholism, drug addiction, transportation, low edu. Level, literacy, decrease access to med. care, detention, rehab)? @ -No Was there de-escalation of care discussed even if they declined (Discuss DNR or withdrawal of care, Hospice)? DNR status @ -No What co-morbidities impacted this encounter? (DM, HTN, Smoking, COPD, CAD, Cancer, CVA, ARF, Chemo, Hep., AIDS, mental health diagnosis, sleep apnea, morbid obesity)? @ -None Was patient admitted / discharged? Hospital course, mention meds given and route, prescriptions, significant lab abnormalities, going to OR and other pertinent info. @ -Patient presents with left ankle lateral more than medial swelling and tenderness. No fevers. No signs of infection. Edmond unlikely to be infectious. Edmond unlikely to be acute rheumatological disease. No other joint involved. Evaluation is consistent with evaluation similar to ankle sprain. Exact etiology is unclear as patient does not recall an injury. Patient will be treated with anti-inflammatories and advised follow-up. Patient is informed to return if fever or redness or warmth. Undiagnosed new problem with uncertain prognosis? @ -No Drug Therapy requiring intensive monitoring for toxicity (Heparin, Nitro, Insulin, Cardizem)? @ -No Were any procedures done? @ -No Diagnosis/symptom? @ -Ankle pain Acute, or Chronic, or Acute on Chronic? @ -Acute Uncomplicated (without systemic symptoms) or Complicated (systemic symptoms)? @ -Default Side effects of treatment? @ -No Exacerbation, Progression, or Severe Exacerbation? @ -No Poses a threat to life or bodily function? How? (Chest pain, [place], [place], pneumonia, PE, COPD, DKA, ARF, appy, cholecystitis, CVA, Diverticulitis, Homicidal, Suicida l, threat to staff... and all critical care pts) @ -No (Angelito Zuniga) Disposition <Evelyn Baptiste - Last Filed: 07/04/23 13:18> Is patient prescribed a controlled substance at d/c from ED?: No Time of Disposition: 15:50 <Angelito Zuniga - Last Filed: 07/04/23 15:51> Clinical Impression: Ankle pain Disposition: HOME SELF-CARE Condition: Stable Instructions (If sedation given, give patient instructions): Ankle Sprain (ED), Ankle Stirrup Splint (ED), Arthralgia (ED) Additional Instructions: Prescription sent to pharmacy. Please do follow-up with primary care physician in the next couple of days for recheck. If symptoms continue you may need orthopedic evaluation. Return for fever, redness, warmth, increased swelling, worsening symptoms or any other concerns. Prescriptions: Naproxen [EC-Naproxen] 500 mg PO BID #20 tab Referrals: Kieran Weston DO [Primary Care Provider] - 1-2 days
[2023-07-04 14:47] VITALS: TEMP 98.3
--- NOTE | 2023-07-04 15:19 | XR ---
EXAMINATION TYPE: XR ankle complete LT DATE OF EXAM: 07/04/2023 3:14 PM CLINICAL INDICATION:Male, 63 years old with history of pain and ecchymosis; [facility] COMPARISON: None TECHNIQUE: The left ankle is imaged in frontal, lateral and oblique projections. FINDINGS: There is no evidence of acute osseous pathology. The joint spaces are well-preserved without evidenc e of subluxation or dislocation. Kager's fat pad is intact. No radiopaque foreign bodies are identifi ed. IMPRESSION: No evidence of acute process.
--- NOTE | 2023-07-04 15:19 | XR ---
EXAMINATION TYPE: XR foot complete LT DATE OF EXAM: 07/04/2023 3:14 PM CLINICAL INDICATION:Male, 63 years old with history of pain and ecchymosis; [facility] COMPARISON: None TECHNIQUE: The left foot was examined in the AP, oblique, and lateral projections. FINDINGS: No evidence of any acute osseous pathology. No evidence of soft tissue swelling. Joints are preserve d. IMPRESSION: No evidence of acute osseous process.
[2023-07-04] MEDS: KETOROLAC 15 MG/ML 1 ML VIAL IM STA (16:05)
[2023-07-04] MEDS: ACET/COD 300 MG/30 MG STARTER PACK 6 TAB BTL PO STA (16:05)
[2023-07-04 16:22] VITALS: BP 145/80; PULSE 86; RESP 16
== END 2023-07-04 16:43 | disposition home or self-care (01) ==
LOC: EC 13:09
DX: M79.672 Pain in left foot (principal); M19.90 Unspecified osteoarthritis, unspecified site; Z79.1 Long term (current) use of non-steroidal anti-inflammatories (NSAID)
CPT/HCPCS: 73610; 73630; 99283; 96372; J1885